=== PATIENT | female | born 1940 | race Caucasian/White ===

== ENCOUNTER 2018-02-25 08:42 | Emergency (ER) | payer MEDICARE ==
[2018-02-25 08:45] VITALS: BP 124/68; PULSE 67; TEMP 97.2
[2018-02-25 10:16] LABS: BASO # 0.1 (0.0-0.2); EOS # 0.1 (0.0-0.7); EOS % 1.4 % (0-4.0); GRAN # 3.5 (1.4-6.5); GRAN % 67.1 % (42.2-75.2); HEMATOCRIT 37.6 % (37.0-47.0); HEMOGLOBIN 12.8 g/dl (12.5-16.0); LYMPH # 1.2 (1.2-3.4); LYMPH % 22.3 % (20.0-51.0); MEAN CELL VOLUME 94 fl (80.0-100.0); MEAN CORPUSCULAR HEMOGLOBIN 32 pg (27.0-31.0); MEAN CORPUSCULAR HGB CONC 34 g/dl (33.0-37.0); MEAN PLATELET VOLUME 11.8 fl (7.4-10.4); MONO # 0.4 (0.1-0.6); MONO % 7.8 % (1.7-9.3); PLATELET COUNT 175 K/mm3 (130-400); RED BLOOD COUNT 3.99 M/mm3 (4.10-5.30); REDCELL DISTRIBUTION WIDTH-CV 12.2 % (11.5-14.5)
[2018-02-25 10:30] LABS: ALANINE AMINOTRANSFERASE 38 U/L (9-52); ALBUMIN 3.5 gm/dL (3.5-5.0); ALKALINE PHOSPHATASE 87 U/L (50-136); ANION GAP 8 mmol/L (7-16); AST,SGOT 33 U/L (15-37); BILIRUBIN,TOTAL 0.7 mg/dL (0.0-1.0); BLOOD UREA NITROGEN 19 mg/dL (7-17); CARBON DIOXIDE 30 mmol/L (22-30); CHLORIDE 100 mmol/L (98-107); CREATININE, serum 0.92 mg/dL (0.52-1.25); GLUCOSE 109 mg/dL (74-106); PHOSPHOROUS 3.6 mg/dL (2.5-4.5); POTASSIUM 4.6 mmol/L (3.4-5.0); SODIUM 137 mmol/L (137-145)
[2018-02-25 10:42] LABS: TROPONIN-I < 0.012 ng/mL (0.000-0.034)
[2018-02-25 11:38] LABS: COLLECTION METHOD CLEAN CATCH
[2018-02-25 11:52] LABS: PH 8 (5-8); SQUAMOUS EPITHELIAL 0-2 /hpf; URINE APPEARANCE Clear; URINE BACTERIA None Seen /hpf; URINE BILIRUBIN Negative (NEGATIVE); URINE BLOOD Negative (NEGATIVE); URINE COLOR Straw; URINE GLUCOSE Negative (NEGATIVE); URINE KETONE Negative (NEGATIVE); URINE LEUKOCYTE ESTERASE Negative (NEGATIVE); URINE NITRATE Negative (NEGATIVE); URINE PROTEIN(semi-quant) Negative (NEGATIVE); URINE RBC 0-2 /hpf; URINE UROBILINOGEN Negative (NEGATIVE)
[2018-02-25] MEDS ORDERED: SYNTHROID0.088 MG/T PO (14:48)
[2018-02-25] MEDS ORDERED: EPA FISH OIL1 SGL PO (14:48)
[2018-02-25] MEDS ORDERED: LEXAPRO 10MG10 MG PO (14:49)
[2018-02-25] MEDS ORDERED: MACRODANTIN100 PO (14:50)
[2018-02-25] MEDS ORDERED: TENEX PO (14:54)
[2018-02-25] MEDS ORDERED: MELATONIN5 M1 SL (14:56)
[2018-02-25] MEDS ORDERED: MULTIPLE VITAMI1 CAP PO (14:57)
[2018-02-25] MEDS ORDERED: PROBIOTIC FORMU1 CAP PO (14:57)
[2018-02-25] MEDS ORDERED: SEROQUEL 1100 MG/TAB PO (14:58)
[2018-02-25] MEDS ORDERED: SEROQUEL50 MG PO (15:00)
[2018-02-25] MEDS ORDERED: DESYREL 50MG50 MG PO (15:01)
== END 2018-02-25 16:07 | disposition home or self-care (01) ==
LOC: COL.ER 08:42
PROVIDERS: Emergency Medicine
DX: M25.551 Pain in right hip (principal); R25.8 Other abnormal involuntary movements; F03.90 Unspecified dementia, unspecified severity, without behavioral disturbance, psychotic disturbance, mood disturbance, and anxiety; E03.9 Hypothyroidism, unspecified; E78.5 Hyperlipidemia, unspecified; K59.00 Constipation, unspecified

== ENCOUNTER 2018-07-07 19:34 | Inpatient (IN) | payer MEDICARE ==
[2018-07-07] VITALS (58 sets, daily range): O2SAT 75–100
[~2018-07-07] VITALS: Ht 152.4 cm; Wt 74.9 kg
[~2018-07-07 19:34] MED LIST: ASPI325T6 PO; ATIVAN 1MG T1 MG/TAB PO; BUMEX 1MG TA1 MG/TA1 PO; CATAPRES 0.1MG0.1 MG PO; CATAPRES0.2 MG PO; DESYREL 100MG100 MG PO; DESYREL 50MG50 MG PO; DULCOLAX S10 MG/SUPP RC; DULCOLAX STOOL100 MG PO; EPA FISH OIL1 SGL PO; GOOD NEIGH1200 MG/15 PO; K-DUR20 MEQ PO; LEXAPRO 10MG10 MG PO; LIPITOR 10MG10 MG PO; MACRODANTIN100 PO; MELATONIN5 M1 PO; MIRALAX PA17 GM/Dose PO; MULTI VITAMINS1 TAB PO; MULTIPLE VITAMI1 CAP PO; NAMENDA XR 28MG PO; NAMENDA5 MG PO; PLAVIX 75MG TAB75 MG PO; PROBIOTIC FORMU1 CAP PO; RAZADYNE ER8 MG PO; SENNA8.6 MG PO; SEROQUEL 1100 MG/TAB PO; SEROQUEL50 MG PO; SYNTHROID0.088 MG/T PO; SYNTHROID0.1 MG/TAB PO; TENEX PO; ULTRAM 50MG TAB50 MG PO
[2018-07-07 20:04] LABS: BASO # 0.1 (0.0-0.2); BASO % 0.8 % (0.0-2.0); EOS % 0.1 % (0-4.0); GRAN # 11.8 (1.4-6.5); GRAN % 80.6 % (42.2-75.2); HEMATOCRIT 50.8 % (37.0-47.0); HEMOGLOBIN 15.8 g/dl (12.5-16.0); LYMPH % 13.5 % (20.0-51.0); MEAN CELL VOLUME 102 fl (80.0-100.0); MEAN CORPUSCULAR HEMOGLOBIN 32 pg (27.0-31.0); MEAN CORPUSCULAR HGB CONC 31 g/dl (33.0-37.0); MEAN PLATELET VOLUME 13.4 fl (7.4-10.4); MONO # 0.7 (0.1-0.6); MONO % 4.7 % (1.7-9.3); PLATELET COUNT 168 K/mm3 (130-400); RED BLOOD COUNT 4.97 M/mm3 (4.10-5.30); REDCELL DISTRIBUTION WIDTH-CV 12.5 % (11.5-14.5)
[2018-07-07 20:18] LABS: ALANINE AMINOTRANSFERASE 68 U/L (9-52); ALBUMIN 3.8 gm/dL (3.5-5.0); ALKALINE PHOSPHATASE 144 U/L (50-136); ANION GAP 20 mmol/L (7-16); AST,SGOT 32 U/L (15-37); BLOOD UREA NITROGEN 117 mg/dL (7-17); C-REACTIVE PROTEIN 2.1 mg/dL (0.0-0.9); CARBON DIOXIDE 28 mmol/L (22-30); CHLORIDE 120 mmol/L (98-107); CREATININE, serum 2.88 mg/dL (0.52-1.25); MAGNESIUM 3.1 mg/dL (1.6-2.3); POTASSIUM 4.3 mmol/L (3.4-5.0); TOTAL PROTEIN 7.6 gm/dL (6.4-8.2)
[2018-07-07 20:21] LABS: ACETONE,SERUM NEGATIVE
[2018-07-07 20:24] LABS: GLUCOSE 686 mg/dL (74-106); SODIUM 168 mmol/L (137-145)
[2018-07-07 20:27] LABS: TROPONIN-I 0.021 ng/mL (0.000-0.034)
[2018-07-07 21:17] LABS: COLLECTION METHOD CATHETER
[2018-07-07 21:47] LABS: BUDDING YEAST Present /hpf; MUCOUS Present /lpf; PH 5 (5-8); SQUAMOUS EPITHELIAL 0-2 /hpf; URINE APPEARANCE Cloudy; URINE BACTERIA Many /hpf; URINE BILIRUBIN Negative (NEGATIVE); URINE BLOOD Negative (NEGATIVE); URINE COLOR Yellow; URINE GLUCOSE 3+ (NEGATIVE); URINE KETONE Negative (NEGATIVE); URINE LEUKOCYTE ESTERASE Trace (NEGATIVE); URINE NITRATE Negative (NEGATIVE); URINE PROTEIN(semi-quant) Negative (NEGATIVE); URINE RBC 0-2 /hpf; URINE UROBILINOGEN Negative (NEGATIVE)
[2018-07-07] MEDS ORDERED: NAMENDA XR 28MG PO (22:07)
[2018-07-07 22:24] LABS: CALCIUM 9.3 mg/dL (8.4-10.2); CREATININE, serum 2.95 mg/dL (0.52-1.25); POTASSIUM 3.6 mmol/L (3.4-5.0)
[2018-07-08] VITALS (588 sets, daily range): BP systolic 91–116; BP diastolic 47–95; PULSE 79–101; TEMP 97.4–98.2; O2SAT 82–100
[2018-07-08 01:18] LABS: CALCIUM 9.1 mg/dL (8.4-10.2); CREATININE, serum 2.88 mg/dL (0.52-1.25); POTASSIUM 3.2 mmol/L (3.4-5.0)
[2018-07-08 01:30] LABS: TROPONIN-I 0.024 ng/mL (0.000-0.034)
[2018-07-08 03:59] LABS: CALCIUM 8.9 mg/dL (8.4-10.2); CREATININE, serum 2.66 mg/dL (0.52-1.25); POTASSIUM 3.8 mmol/L (3.4-5.0)
[2018-07-08 06:19] LABS: BASO # 0.2 (0.0-0.2); BASO % 0.8 % (0.0-2.0); EOS # 0.1 (0.0-0.7); EOS % 0.5 % (0-4.0); GRAN # 14.3 (1.4-6.5); GRAN % 80.5 % (42.2-75.2); HEMATOCRIT 44.5 % (37.0-47.0); LYMPH # 2.3 (1.2-3.4); LYMPH % 12.8 % (20.0-51.0); MEAN CELL VOLUME 101 fl (80.0-100.0); MEAN CORPUSCULAR HEMOGLOBIN 32 pg (27.0-31.0); MEAN CORPUSCULAR HGB CONC 32 g/dl (33.0-37.0); MEAN PLATELET VOLUME 13.3 fl (7.4-10.4); MONO # 0.9 (0.1-0.6); MONO % 5.1 % (1.7-9.3); PLATELET COUNT 150 K/mm3 (130-400); RED BLOOD COUNT 4.41 M/mm3 (4.10-5.30); REDCELL DISTRIBUTION WIDTH-CV 12.6 % (11.5-14.5)
[2018-07-08 06:41] LABS: CALCIUM 8.3 mg/dL (8.4-10.2); CREATININE, serum 2.67 mg/dL (0.52-1.25); POTASSIUM 3.8 mmol/L (3.4-5.0)
[2018-07-08 10:04] LABS: CALCIUM 7.5 mg/dL (8.4-10.2); CREATININE, serum 2.31 mg/dL (0.52-1.25); POTASSIUM 3.6 mmol/L (3.4-5.0)
[2018-07-08 15:12] LABS: CREATININE, serum 2.4 mg/dL (0.52-1.25); POTASSIUM 3.6 mmol/L (3.4-5.0)
[2018-07-08 18:31] LABS: CALCIUM 7.7 mg/dL (8.4-10.2); CREATININE, serum 2.29 mg/dL (0.52-1.25); POTASSIUM 3.6 mmol/L (3.4-5.0)
[2018-07-08 22:08] LABS: CREATININE, serum 2.29 mg/dL (0.52-1.25); POTASSIUM 3.4 mmol/L (3.4-5.0)
[2018-07-09] VITALS (1003 sets, daily range): BP systolic 98–138; BP diastolic 60–99; PULSE 83–96; TEMP 97.9–98.5; O2SAT 86–100
[2018-07-09 02:44] LABS: CREATININE, serum 2.28 mg/dL (0.52-1.25); POTASSIUM 3.6 mmol/L (3.4-5.0)
[2018-07-09 06:15] LABS: CALCIUM 7.8 mg/dL (8.4-10.2); CREATININE, serum 2.18 mg/dL (0.52-1.25); POTASSIUM 3.8 mmol/L (3.4-5.0)
[2018-07-09 10:16] LABS: CALCIUM 7.9 mg/dL (8.4-10.2); CREATININE, serum 2.05 mg/dL (0.52-1.25); POTASSIUM 3.7 mmol/L (3.4-5.0)
[2018-07-09 14:19] LABS: CALCIUM 8.1 mg/dL (8.4-10.2); CREATININE, serum 1.94 mg/dL (0.52-1.25); POTASSIUM 3.5 mmol/L (3.4-5.0)
[2018-07-09 18:11] LABS: CALCIUM 8.3 mg/dL (8.4-10.2); CREATININE, serum 1.9 mg/dL (0.52-1.25); POTASSIUM 3.5 mmol/L (3.4-5.0)
[2018-07-09 22:13] LABS: CREATININE, serum 1.73 mg/dL (0.52-1.25); POTASSIUM 3.6 mmol/L (3.4-5.0)
[2018-07-10] VITALS (664 sets, daily range): BP systolic 107–147; BP diastolic 79–97; PULSE 70–89; TEMP 97–98.5; O2SAT 74–100
[2018-07-10 02:28] LABS: CALCIUM 7.9 mg/dL (8.4-10.2); CREATININE, serum 1.6 mg/dL (0.52-1.25); POTASSIUM 3.5 mmol/L (3.4-5.0)
[2018-07-10 06:43] LABS: CALCIUM 7.8 mg/dL (8.4-10.2); CREATININE, serum 1.48 mg/dL (0.52-1.25); POTASSIUM 3.2 mmol/L (3.4-5.0)
[2018-07-10 08:43] LABS: MEAN CELL VOLUME 99 fl (80.0-100.0); MEAN CORPUSCULAR HGB CONC 32 g/dl (33.0-37.0); MEAN PLATELET VOLUME 13.1 fl (7.4-10.4); REDCELL DISTRIBUTION WIDTH-CV 12.7 % (11.5-14.5)
[2018-07-10 08:46] LABS: HEMATOCRIT 35.8 % (37.0-47.0); HEMOGLOBIN 11.3 g/dl (12.5-16.0); MEAN CORPUSCULAR HEMOGLOBIN 31 pg (27.0-31.0)
[2018-07-10 08:47] LABS: PLATELET COUNT 75 K/mm3 (130-400)
[2018-07-10 09:23] LABS: BAND 15 % (0-10); EOSINOPHIL 2 % (0-4); LYMPHOCYTE 17 % (20.0-51.0); NEUTROPHILS 63 % (42.0-75.2)
[2018-07-10 09:24] LABS: PLATELET ESTIMATE NORMAL (NORMAL)
[2018-07-10 10:41] LABS: CALCIUM 7.9 mg/dL (8.4-10.2); CREATININE, serum 1.45 mg/dL (0.52-1.25); POTASSIUM 3.8 mmol/L (3.4-5.0)
[2018-07-10 15:17] LABS: CALCIUM 8.2 mg/dL (8.4-10.2); CREATININE, serum 1.33 mg/dL (0.52-1.25); POTASSIUM 3.6 mmol/L (3.4-5.0)
[2018-07-10 21:30] LABS: CREATININE, serum 1.2 mg/dL (0.52-1.25); POTASSIUM 3.4 mmol/L (3.4-5.0)
[2018-07-11] VITALS (157 sets, daily range): BP systolic 96–143; BP diastolic 54–90; PULSE 66–96; TEMP 97.4–98.5; O2SAT 88–100
[2018-07-11 03:26] LABS: CALCIUM 7.9 mg/dL (8.4-10.2); CREATININE, serum 1.09 mg/dL (0.52-1.25); POTASSIUM 3.4 mmol/L (3.4-5.0)
[2018-07-11 03:30] LABS: MAGNESIUM 2.4 mg/dL (1.6-2.3); PHOSPHOROUS 1.7 mg/dL (2.5-4.5)
[2018-07-11 03:37] LABS: PRE ALBUMIN 8.1 mg/dL (17.6-36.0)
[2018-07-11 09:26] LABS: CALCIUM 7.9 mg/dL (8.4-10.2); CREATININE, serum 1.12 mg/dL (0.52-1.25); POTASSIUM 3.2 mmol/L (3.4-5.0)
[2018-07-11 10:33] LABS: HEMATOCRIT 37.2 % (37.0-47.0); HEMOGLOBIN 12.1 g/dl (12.5-16.0); MEAN CELL VOLUME 97 fl (80.0-100.0); MEAN CORPUSCULAR HEMOGLOBIN 32 pg (27.0-31.0); MEAN CORPUSCULAR HGB CONC 33 g/dl (33.0-37.0); MEAN PLATELET VOLUME 14.1 fl (7.4-10.4); PLATELET COUNT 69 K/mm3 (130-400); RED BLOOD COUNT 3.82 M/mm3 (4.10-5.30); REDCELL DISTRIBUTION WIDTH-CV 12.2 % (11.5-14.5)
[2018-07-11 17:27] LABS: CALCIUM 7.6 mg/dL (8.4-10.2); CREATININE, serum 1.08 mg/dL (0.52-1.25); POTASSIUM 3.4 mmol/L (3.4-5.0)
[2018-07-12 01:14] VITALS: BP 99/65; PULSE 103; TEMP 98.5
[2018-07-12 05:30] VITALS: BP 100/78; PULSE 87; TEMP 98.5
[2018-07-12 06:11] LABS: CALCIUM 7.3 mg/dL (8.4-10.2); CREATININE, serum 1.25 mg/dL (0.52-1.25); POTASSIUM 3.2 mmol/L (3.4-5.0)
[2018-07-12 07:48] VITALS: BP 112/56; PULSE 70; TEMP 97.9
[2018-07-12] MEDS ORDERED: ROXANOL 20MG20 MG/ML SL (11:19)
[2018-07-12] MEDS ORDERED: RT ALBUTER2.5 MG/0.5 IH (11:19)
[2018-07-12] MEDS ORDERED: DULCOLAX S10 MG/SUPP RC (11:20)
[2018-07-12] MEDS ORDERED: ATROPINE SULFATE5 ML SL (11:20)
[2018-07-12] MEDS ORDERED: ATIVAN 1MG T1 MG/TAB PO (11:20)
[2018-07-12] MEDS ORDERED: ARTIFICIAL TEAR15 M7 OP (11:20)
[2018-07-12] MEDS ORDERED: Remove Patch TD (11:21)
[2018-07-12] MEDS ORDERED: TRANSDERM-0.5 MG/21 TD (11:21)
[2018-07-12] MEDS ORDERED: ZOFRAN ODT4 MG PO (11:21)
== END 2018-07-12 17:56 | disposition hospice, inpatient (51) | DRG 640 ==
LOC: COL.ER 19:34 → ICU 19:58 → MEDICAL 19:58
PROVIDERS: Internal Medicine; Internal Medicine Pulmonary Disease; Nurse Practitioner; Nurse Practitioner Family
PROC: 02HV33Z Insertion of Infusion Device into Superior Vena Cava, Percutaneous Approach (ICD-10-PCS; principal; 2018-07-08)
DX: E87.0 Hyperosmolality and hypernatremia (principal); G93.40 Encephalopathy, unspecified; N17.9 Acute kidney failure, unspecified; F05 Delirium due to known physiological condition; F02.81 Dementia in other diseases classified elsewhere, unspecified severity, with behavioral disturbance; Z51.5 Encounter for palliative care; Z66 Do not resuscitate; E78.5 Hyperlipidemia, unspecified; R73.9 Hyperglycemia, unspecified; E87.2 Acidosis; G20 Parkinson's disease; E87.6 Hypokalemia; E86.0 Dehydration; G30.9 Alzheimer's disease, unspecified
CPT/HCPCS: 99223-AI; 99232-AI; 99233-AI; 99239; J1644; J1815; J2060; J2543; J3480; J7030; J7040; J7050